=== PATIENT | female | born 1980 | race Caucasian/White ===

== ENCOUNTER 2020-03-15 15:08 | Outpatient (CLI) | payer MEDICAID ==
[2020-03-19] MEDS ORDERED: NORMODYNE / TR100 MG PO (06:20)
[2020-03-19] MEDS ORDERED: PRENAVITE1 TAB PO (06:21)
[2020-03-19] MEDS ORDERED: ALBUTEROL SULF8.5 GM INH (06:22)
[2020-03-19 06:23] VITALS: BMI 34.1
== END 2020-03-15 16:25 | disposition home or self-care (01) ==
LOC: D.LDO 15:08
PROVIDERS: ATTEND Student in an Organized Health Care Education/Training Program
DX: O16.9 Unspecified maternal hypertension, unspecified trimester (principal)